=== PATIENT | male | born 1960 | race Caucasian/White ===

== ENCOUNTER 2023-12-27 06:04 | Day surgery (SDC) | payer OTHER, SELFPAY ==
[2023-12-11 14:04] LABS: ALT (SGPT) 31 U/L (0-50); AST (SGOT) 34 U/L (17-59); Alkaline Phosphatase 63 U/L (38-126); Blood Urea Nitrogen 17 mg/dl (9-20); Calcium 9.1 mg/dl (8.4-10.2); Carbon Dioxide 30 mmol/L (22-30); Chloride 104 mmol/L (98-107); Glucose 93 mg/dl (70-99); Magnesium 2.1 mg/dl (1.6-2.3); Potassium 4.5 mmol/L (3.5-5.1); Sodium 136 mmol/L (135-145); Total Bilirubin 1.3 mg/dl (0.2-1.3); Total Protein 6.7 g/dl (6.3-8.2); eGFR > 60.00
[2023-12-11 14:05] LABS: INR 1.21; PT 15.2 Sec (11.4-14.6)
[2023-12-11 14:13] LABS: % Basophils 0.6 % (0-2); % Eosinophils 1.1 % (0-6); % Immature Granulocytes 0.3 % (0-0.5); % Lymphocytes 28.2 % (20.5-51.1); % Neutrophils 60.8 % (42.2-75.2); Absolute Eosinophils 0.1 10^3/uL (0-0.7); Absolute Lymphocytes 1.8 10^3/uL (1.2-3.4); Absolute Monocytes 0.6 10^3/uL (0.1-0.6); Absolute Neutrophils 3.9 10^3/uL (1.4-6.5); Hematocrit 42.1 % (39.0-52.0); Hemoglobin 14.6 g/dL (13.0-18.0); Mean Corp Hgb Conc. 34.7 g/dL (33.0-37.0); Mean Corpuscular Hgb 31.1 pg (27.0-31.0); Mean Corpuscular Volume 89.8 fL (80.0-94.0); Mean Platelet Volume 10.9 fL (7.4-10.4); Nucleated Red Blood Cells % 0 % (-); Platelet Count 230 10^3/uL (130-400); Red Blood Cell Count 4.69 10^6/uL (4.70-6.10); Red Cell Dist. Width 12.8 % (11.5-14.5); White Blood Cell Count 6.5 10^3/uL (4.8-10.8)
[2023-12-27] VITALS (11 sets, daily range): BP systolic 97–149; BP diastolic 56–95; BMI 25.5
[2023-12-27] MEDS: TYLENOL 1000 MG PO (07:16)
[2023-12-27 08:56] LABS: ACT-LR - POC 310 Seconds (116-155)
[2023-12-27 09:16] LABS: ACT-LR - POC 310 Seconds (116-155)
[2023-12-27 09:30] LABS: ACT-LR - POC 326 Seconds (116-155)
--- NOTE | 2023-12-27 10:02 | ITS.CL.ABL ---
Addendum entered and electronically signed by Gabriele Kimble MD 01/12/24 14:37:
correct date is 12/27/23 of procedure
Original Note:
[facility] - Ablation
Ablation
Procedure Report:
ELECTROPHYSIOLOGY ABLATION STUDY
DATE:: December 19, 2023 REFERRING: Dr. Gabriele Kimble
INDICATION: Recently persistent supraventricular tachycardia in the form of atrial fibrillation. Failed cardioversion recently on metoprolol
HISTORY: See H and P. As above
ANTIARRHYTHMIC DRUG: Metoprolol
PRE-PROCEDURE DENAE: No atrial thrombus
PRESENTING RHYTHM: Atrial fibrillation
'TIME-OUT': called and confirmed.
SEDATION/ANESTHESIA: provided via the anesthesia department using general anesthesia (LMA).
INTRAVENOUS/ARTERIAL ACCESS:
Right femoral venous - 8Fr
Left femoral venous - 8 Fr, 6 Fr
Vrdahr-ul-dzosd suture was applied to each groin
Ultrasound guidance for bilateral femoral vein access was utilized by me to obtain access with demonstration of normal anatomy
CHADS-VASC Score:
numerical control operator: Dr. Gabriele Kimble
ring cutter lathe operator Dr. Adam Ramirez
HAS-Bled Score
PROCEDURE:
1. A decapolar CS catheter was placed within the CS for mapping and pacing. This was also used as the reference catheter for the 3-D map. Initial mapping was performed with the pulse select catheter and confirmatory mapping with the multipolar
catheter at the end of procedure.
2. The intracardiac ultrasound catheter was positioned in the RA to identify the FO for targeting of transseptal puncture, assist in identification of the pulmonary vein ostia, monitoring pre and post ablation pulmonary vein flow velocities,
monitoring for 'bubble' formation during RF application as a sign of thermal injury, and to monitor for pericardial effusion during mapping and ablation procedure. Left atrial size, LV ejection fraction, and pulmonary vein flows were monitored
pre and post ablation procedure. The other valves were inspected and found to be free of significant regurgitation or stenosis.
3. Half of the calculated heparin bolus was administered prior to the first transeptal puncture. Transseptal puncture was performed to diagnose RA and LA pressure so that safety of LA mapping and ablation could be further assessed, and to access
the left atrium and pulmonary veins for mapping and ablation. This entailed advancing an 12 [place] outer sheath with dilator into the superior vena cava and withdrawing both (monitoring intracardiac ultrasound, fluoroscopy and tip pressure) with
the tip oriented toward the atrial septum. The fossa ovalis was engaged (indicated by sudden displacement of the sheath tip as well as tenting of the fossa seen on intracardiac ultrasound). Left atrial access required a pass with the [place]
needle extended. Left atrial catheter position was confirmed by pressure monitoring (RA mean pressure for mm Hg and LA mean presure 12 mm Hg), LA saturation (99%), as well as fluoroscopy. The sheath was advanced over the dilator and positioned in
the left atrium. This procedure was repeated for the Agilis sheath. The remainder of the calculated heparin bolus was administered and heparin was
infused to maintain ACT at 300 -350 seconds throughout the case.
4. RA pacing was performed via the proximal decapolar poles and LA pacing was performed via the distal decapolr poles.
5. A quadrapolar catheter was first positioned at the His position for His Bundle recording which was tagged via the 3-D Navex sytem, and then passed to the RVA for RV pacing and recording.
6. The ablation catheter was positioned through one of the transeptal seaths and a 20 pole ring mapping catheter was positioned through the second seath into the LA and then the ostia of the LIPV, LSPV, RSPV and the RIPV.
7. Next, a 3-D map was created using Navex. A 3-D reconstructed CT image was compared to the 3-D Navex map to assist in anatomic interpretation, mapping and ablation. The CT image and the NavX image were fused.
8. Pulmonary vein and extrapulmonary vein lesions were given at 1500 V with entrance and exit block confirmed in each of the 4 pulmonary veins and isolation of the left atrial posterior wall in a segmental fashion. This was confirmed with both the
ablation catheter and the multipolar grid catheter. The patient was cardioverted to sinus rhythm with 1 200 J synchronized shock prior to confirming entrance next block in all 4 pulmonary veins and the posterior wall. We also confirmed the voltage
abnormality with proximity unipolar signals on the LUCRECIA system. Prior to ablation we did give the patient 0.4 mg of glycopyrrolate and 500 cc normal saline.
9. Normal sinus node and AV arie function are noted.
TOTAL FLOURO TIME: 12 minutes 140 mGy
TOTAL RF DURATION: 0 minutes
REVERSAL OF HEPARIN: 40 mg of protamine, slow IV administration
COMPLICATIONS:
None
Intracardiac US shows no pericardial effusion post ablation.
SUMMARY:
Complex left atrial mapping and ablation.
Isolation of all 4 pulmonary veins with entrance
Confirmed as well as isolation of the left atrial posterior wall with the pulsed select catheter.
RECOMMENDATIONS:
1. Admit to monitored bed.
2. Resume anticoagulation
3. Out of bed in 4 hours and consider same-day discharge
4. Can consider antiarrhythmic drug therapy if he has any clinical recurrence
Copy to: Dr. Gabriele Kimble
[2023-12-27] MEDS: ANESTHETIC LOZENGE 1 LOZENGE PO (10:30)
--- NOTE | 2023-12-27 15:46 | W.PN.UPDATE ---
Update Note
Progress Note Update
Pt seen post PFA. Bilat groin sites without ht/bleeding, non tender. OOB with steady gait. Post EKG NSR 70s, no acute changes. Resume Xarelto today, continue other meds as before. Followup with Dr. Kimble as scheduled. Home today if groin
sites/tele remain stable.
== END 2023-12-27 15:06 | disposition home or self-care (01) ==
LOC: CATH 06:04
PROVIDERS: ATTENDING PHYSICIAN Internal Medicine Cardiovascular Disease; FAMILY PHYSICIAN Internal Medicine
DX: I48.19 Other persistent atrial fibrillation (principal); E78.5 Hyperlipidemia, unspecified; Z79.01 Long term (current) use of anticoagulants
CPT/HCPCS: C1732; C1730; C1769; C1892; C1759; C1894; 36415; 75572; 76937; 80053; 83735; 85025; 85347; 85610; 86850; 86900; 86901; 93005; 93656; Q9967